=== PATIENT | female | born 1935 | race Caucasian/White ===

== ENCOUNTER 2022-10-18 20:07 | Inpatient (IN) | payer MEDICARE, OTHER ==
[~2022-10-18] VITALS: Ht 160 cm; Wt 93.4 kg
[2022-10-18] MEDS ORDERED: ACETAMINOPHEN ES 500 MG TABLET PO ONE (20:30)
[2022-10-18] MEDS ORDERED: ACETAMINOPHEN ES 500 MG TABLET ONE (20:42)
[2022-10-18 21:33] LABS: CALCIUM 9.8 mg/dL (8.5-10.1); CARBON DIOXIDE 28 mmol/L (21-32); CHLORIDE 101 mmol/L (98-107); CREATININE 1.5 mg/dL (0.6-1.3); GLUCOSE 134 mg/dL (74-106); POTASSIUM 4.5 mmol/L (3.5-5.1); SODIUM SERUM 137 mmol/L (136-145); UREA NITROGEN, BLOOD 21 mg/dL (7-18)
[2022-10-18 21:35] LABS: BASOPHILS % (AUTO) 0.3 % (0.0-2.0); DIFFERENTIAL COMMENT 0; EOSINOPHILS % (AUTO) 0.3 % (0.0-7.0); HEMATOCRIT 40.3 % (31.2-41.9); HEMOGLOBIN 13.2 g/dL (10.9-14.3); LYMPHOCYTES # (AUTO) 0.9 K/uL (0.8-4.8); LYMPHOCYTES % (AUTO) 6.7 % (20.5-51.5); MEAN CORPUSCULAR HGB CONC 33 g/dL (32.3-35.6); MEAN CORPUSCULAR VOLUME 91.8 fL (75.5-95.3); MONOCYTES # (AUTO) 0.4 K/uL (0.1-1.30); MONOCYTES % (AUTO) 2.8 % (0.0-11.0); NEUTROPHILS # (AUTO) 12.3 K/uL (1.8-8.9); NEUTROPHILS % (AUTO) 89.9 % (38.5-71.5); PLATELET COUNT (AUTO) 172 K/uL (179-408); RED BLOOD CELL COUNT(AUTO) 4.39 MIL/uL (3.63-4.92); RED CELL DISTRIBUTION WIDTH 15.2 % (12.3-17.7); WHITE BLOOD COUNT (AUTO) 13.7 K/uL (3.8-11.8)
[2022-10-18 21:42] LABS: LACTIC ACID 2.2 mmol/L (0.4-2.0)
[2022-10-18] MEDS ORDERED: IV NORMAL SALINE 1000 ML BAG IV ONE (21:45)
[2022-10-18] MEDS ORDERED: CEFTRIAXONE 1 G in IV DEXTROSE 5% 50 ML IV ONE (21:45)
[2022-10-18 21:49] LABS: ALANINE AMINOTRANSFERASE 20 U/L (14-59); ALBUMIN 3.4 g/dL (3.4-5.0); ALKALINE PHOSPHATASE 45 U/L (50-136); ASPARTATE AMINOTRANSFERASE 20 U/L (15-37); BILIRUBIN,DIRECT 0.2 mg/dL (0.0-0.2); BILIRUBIN,TOTAL 0.5 mg/dL (0.2-1.0); NT-PRO BNP 1719 pg/mL (0-125); TOTAL PROTEIN, SERUM 7.6 g/dL (6.4-8.2)
[2022-10-18] MEDS ORDERED: CEFTRIAXONE /D5W 50ML IVPB **ER PYXIS IV ONE (21:56)
[2022-10-18 22:03] LABS: *BILIRUBIN,URIN NEGATIVE (NEGATIVE); *CLARITY,URINE SLIGHTLY CLOUDY (CLEAR); *COLOR,URINE YELLOW (YELLOW); *KETONES,URINE NEGATIVE (NEGATIVE); *PROTEIN,URINE 1+ (NEGATIVE); *UROBILINOGEN,URINE 0.2 E.U./dl (NORMAL); LEUKOCYTE ESTERASE ,URINE 1+ (NEGATIVE); NITRITE, URINE POSITIVE (NEGATIVE); UGLUCOSE NEGATIVE (NEGATIVE)
[2022-10-18 22:30] LABS: *BLOOD, URINE TRACE (NEGATIVE)
[2022-10-18] MEDS ORDERED: METO-357 PO (22:39)
[2022-10-18] MEDS ORDERED: ATOR20TA PO (22:39)
[2022-10-18] MEDS ORDERED: LEVO88TA5 PO (22:39)
[2022-10-18] MEDS ORDERED: DONE10TA44 PO (22:39)
[2022-10-18] MEDS ORDERED: CLOP75TA15 PO (22:39)
[2022-10-18] MEDS ORDERED: ISOS30TA9 PO (22:39)
[2022-10-18] MEDS ORDERED: ONDANSETRON 4 MG/2 ML VIAL IV PRN (23:00)
[2022-10-18] MEDS ORDERED: ACETAMINOPHEN 325 MG TABLET PO PRN (23:00)
[2022-10-18] MEDS ORDERED: ENOXAPARIN SODIUM 30 MG/0.3 ML DISP.SYRIN SQ SCH (23:00)
[2022-10-18 23:33] LABS: BACTERIA,URINE MODERATE /HPF (NONE SEEN); SQUAMOUS EPITHELIAL CELL,UR FEW /HPF (NONE SEEN)
[2022-10-19] MEDS ORDERED: ENOXAPARIN SODIUM 80 MG/0.8 ML DISP.SYRIN SQ ONE ×2 (00:55→01:00)
[2022-10-19 01:20] VITALS: BP 131/43; TEMP 98.6; O2SAT 95
[2022-10-19] MEDS ORDERED: CEFTRIAXONE /D5W 50ML IVPB **ER PYXIS IV ONE (03:54)
[2022-10-19 04:00] VITALS: BP 135/45; TEMP 99; O2SAT 96
[2022-10-19] MEDS: IV NS 1000 ML 1,000 ML IV PRN (04:06)
[2022-10-19 07:06] LABS: BASOPHILS % (AUTO) 0.4 % (0.0-2.0); EOSINOPHILS % (AUTO) 0.4 % (0.0-7.0); HEMATOCRIT 36.6 % (31.2-41.9); LYMPHOCYTES # (AUTO) 1.8 K/uL (0.8-4.8); LYMPHOCYTES % (AUTO) 15.7 % (20.5-51.5); MEAN CORPUSCULAR HEMOGLOBIN 30.4 uug (24.7-32.8); MEAN CORPUSCULAR HGB CONC 33 g/dL (32.3-35.6); MEAN CORPUSCULAR VOLUME 92.4 fL (75.5-95.3); MONOCYTES # (AUTO) 0.4 K/uL (0.1-1.30); MONOCYTES % (AUTO) 3.9 % (0.0-11.0); NEUTROPHILS # (AUTO) 8.9 K/uL (1.8-8.9); NEUTROPHILS % (AUTO) 79.6 % (38.5-71.5); PLATELET COUNT (AUTO) 128 K/uL (179-408); RED BLOOD CELL COUNT(AUTO) 3.96 MIL/uL (3.63-4.92); RED CELL DISTRIBUTION WIDTH 15.3 % (12.3-17.7); WHITE BLOOD COUNT (AUTO) 11.2 K/uL (3.8-11.8)
[2022-10-19 07:21] LABS: DIFFERENTIAL COMMENT 1
[2022-10-19 07:27] LABS: CALCIUM 8.4 mg/dL (8.5-10.1); CREATININE 1.3 mg/dL (0.6-1.3); MAGNESIUM 1.8 mg/dL (1.8-2.4); PHOSPHOROUS 3.1 mg/dL (2.5-4.9); POTASSIUM 3.8 mmol/L (3.5-5.1)
[2022-10-19 08:00] VITALS: BP 160/52; TEMP 98.5; O2SAT 96
[2022-10-19] MEDS: ENOXAPARIN SODIUM 100 MG/ML DISP.SYRIN SQ SCH ×2 (11:19→21:01)
[2022-10-19 12:00] VITALS: BP 142/49; TEMP 98; O2SAT 97
[2022-10-19] MEDS ORDERED: ISOS30TA86 PO (14:43)
[2022-10-19] MEDS ORDERED: CALC-883 PO (14:43)
[2022-10-19] MEDS ORDERED: ESCI-9 PO (14:43)
[2022-10-19] MEDS ORDERED: ASPI81TA31 PO (14:43)
[2022-10-19 16:00] VITALS: BP 149/47; TEMP 97.8; O2SAT 96
[2022-10-19 20:00] VITALS: BP 130/42; TEMP 98.6; O2SAT 96
[2022-10-19] MEDS ORDERED: CEFTRIAXONE 1 G in IV DEXTROSE 5% 50 ML IV SCH (22:00)
[2022-10-20 00:51] VITALS: BP 145/52; TEMP 98.5; O2SAT 96
[2022-10-20 05:10] VITALS: BP 156/49; TEMP 97.9; O2SAT 95
[2022-10-20] MEDS: IV NS 1000 ML 1,000 ML IV PRN (07:38)
[2022-10-20 08:00] VITALS: BP 164/65; TEMP 98.2; O2SAT 95
[2022-10-20 08:07] LABS: CALCIUM 8.7 mg/dL (8.5-10.1); CREATININE 1.1 mg/dL (0.6-1.3); MAGNESIUM 2.1 mg/dL (1.8-2.4); PHOSPHOROUS 2.8 mg/dL (2.5-4.9); POTASSIUM 3.6 mmol/L (3.5-5.1)
[2022-10-20 08:08] LABS: BASOPHILS % (AUTO) 0.5 % (0.0-2.0); EOSINOPHILS # (AUTO) 0.1 K/uL (0.0-0.7); HEMATOCRIT 35.5 % (31.2-41.9); HEMOGLOBIN 11.6 g/dL (10.9-14.3); LYMPHOCYTES # (AUTO) 1.9 K/uL (0.8-4.8); LYMPHOCYTES % (AUTO) 26.7 % (20.5-51.5); MEAN CORPUSCULAR HEMOGLOBIN 30.2 uug (24.7-32.8); MEAN CORPUSCULAR HGB CONC 33 g/dL (32.3-35.6); MEAN CORPUSCULAR VOLUME 92.5 fL (75.5-95.3); MONOCYTES # (AUTO) 0.5 K/uL (0.1-1.30); MONOCYTES % (AUTO) 7.7 % (0.0-11.0); NEUTROPHILS # (AUTO) 4.5 K/uL (1.8-8.9); NEUTROPHILS % (AUTO) 63.1 % (38.5-71.5); PLATELET COUNT (AUTO) 130 K/uL (179-408); RED BLOOD CELL COUNT(AUTO) 3.84 MIL/uL (3.63-4.92); RED CELL DISTRIBUTION WIDTH 15.8 % (12.3-17.7); WHITE BLOOD COUNT (AUTO) 7.2 K/uL (3.8-11.8)
[2022-10-20 08:14] LABS: DIFFERENTIAL COMMENT 1
[2022-10-20] MEDS ORDERED: CALCIUM CARB/VITAMIN D 500MG-200UNITS TABLET PO SCH (09:00)
[2022-10-20] MEDS: ENOXAPARIN SODIUM 100 MG/ML DISP.SYRIN SQ SCH (09:58)
[2022-10-20] MEDS ORDERED: ISOSORBIDE DINITRATE 20 MG TABLET PO SCH (10:15)
[2022-10-20] MEDS ORDERED: CEPH500C2 PO (10:15)
[2022-10-20] MEDS ORDERED: ENOX100D SQ (10:58)
[2022-10-20] MEDS ORDERED: REMEDY ESSENTIAL ZINC PASTE 113 GM TOP PRN (11:15)
[2022-10-20 12:00] VITALS: BP 119/48; TEMP 98.1; O2SAT 98
[2022-10-20] MEDS ORDERED: ASPIRIN 81 MG TAB.CHEW PO SCH (12:00)
[2022-10-20] MEDS ORDERED: ESCITALOPRAM OXALATE 10 MG TABLET PO SCH (12:00)
[2022-10-20] MEDS ORDERED: ISOSORBIDE MONONITRATE 30 MG TAB.SR.24H PO SCH (12:00)
[2022-10-20] MEDS ORDERED: METOPROLOL SUCCINATE XL 50 MG TAB.SR.24H PO SCH (12:00)
[2022-10-20] MEDS ORDERED: CLOPIDOGREL 75 MG TABLET PO SCH (12:00)
[2022-10-20] MEDS ORDERED: HYDROCORTISONE 1% CREAM 30 GM TUBE TP PRN (12:45)
[2022-10-20 12:46] VITALS: BP 119/48
[2022-10-20] MEDS ORDERED: DONEPEZIL 10 MG TABLET PO SCH (13:00)
[2022-10-20] MEDS ORDERED: ENOX40DI SQ (20:23)
[2022-10-20] MEDS ORDERED: REMEDY ESSENTIAL ZINC PASTE 113 GM TOP SCH (21:00)
[2022-10-20] MEDS ORDERED: HYDROCORTISONE 1% CREAM 30 GM TUBE TP ONE (21:00)
[2022-10-20] MEDS ORDERED: ATORVASTATIN 20 MG TABLET PO SCH (21:00)
[2022-10-21] MEDS ORDERED: LEVOTHYROXINE SODIUM 88 MCG TABLET PO SCH (07:00)
== END 2022-10-20 17:10 | disposition home or self-care (01) | DRG 871 ==
LOC: ER 20:10 → TELE3 22:50
PROVIDERS: ADMIT Nurse Practitioner Acute Care; ATTEND Nurse Practitioner Acute Care
DX: A41.50 Gram-negative sepsis, unspecified (principal); G93.41 Metabolic encephalopathy; N17.0 Acute kidney failure with tubular necrosis; N39.0 Urinary tract infection, site not specified; I82.621 Acute embolism and thrombosis of deep veins of right upper extremity; L03.113 Cellulitis of right upper limb; D68.59 Other primary thrombophilia; R65.20 Severe sepsis without septic shock; E66.01 Morbid (severe) obesity due to excess calories; Z68.36 Body mass index [BMI] 36.0-36.9, adult; Z85.841 Personal history of malignant neoplasm of brain; Z86.73 Personal history of transient ischemic attack (TIA), and cerebral infarction without residual deficits; Z79.02 Long term (current) use of antithrombotics/antiplatelets; Z79.899 Other long term (current) drug therapy; Z85.3 Personal history of malignant neoplasm of breast; Z90.11 Acquired absence of right breast and nipple; Z74.01 Bed confinement status; Z87.440 Personal history of urinary (tract) infections; F03.90 Unspecified dementia, unspecified severity, without behavioral disturbance, psychotic disturbance, mood disturbance, and anxiety; E03.9 Hypothyroidism, unspecified
CPT/HCPCS: 36415; 70450; 71045; 83605; 83735; 84100; 84484; 85025; 85730; 87040; 93005; A6213; A9150; G0378; J0696; J1650; J7040

== ENCOUNTER 2022-11-09 10:43 | Emergency (ER) | payer MEDICARE, OTHER ==
[~2022-11-09] VITALS: Ht 170.2 cm; Wt 78.0 kg
[~2022-11-09 10:43] MED LIST: ASPI81TA31 PO; ATOR20TA PO; CALC-883 PO; CEPH500C2 PO; CLOP75TA15 PO; DONE10TA44 PO; ENOX40DI SQ; ESCI-9 PO; ISOS30TA86 PO; ISOS30TA9 PO; LEVO88TA5 PO; METO-357 PO
[2022-11-09] MEDS ORDERED: METO-357 PO (11:33)
[2022-11-09] MEDS ORDERED: DONE10TA44 PO (11:33)
[2022-11-09] MEDS ORDERED: [UNRECOGNIZED DRUG - OTHER] PO (11:33)
[2022-11-09] MEDS ORDERED: LEVO88TA5 PO (11:33)
[2022-11-09] MEDS ORDERED: MULT-594 PO (11:33)
[2022-11-09] MEDS ORDERED: VITAMIN D3 PO (11:33)
[2022-11-09] MEDS ORDERED: MAGN200T4 PO (11:33)
[2022-11-09 12:50] LABS: EOSINOPHILS # (AUTO) 0.3 K/uL (0.0-0.7); LYMPHOCYTES # (AUTO) 1.5 K/uL (0.8-4.8); MEAN CORPUSCULAR HGB CONC 33 g/dL (32.3-35.6); MONOCYTES # (AUTO) 0.6 K/uL (0.1-1.30)
[2022-11-09 13:16] LABS: CALCIUM 9.8 mg/dL (8.5-10.1); CARBON DIOXIDE 32 mmol/L (21-32); CHLORIDE 102 mmol/L (98-107); CREATININE 1.4 mg/dL (0.6-1.3); GLUCOSE 99 mg/dL (74-106); POTASSIUM 3.8 mmol/L (3.5-5.1); SODIUM SERUM 134 mmol/L (136-145); UREA NITROGEN, BLOOD 23 mg/dL (7-18)
[2022-11-09 13:20] LABS: BASOPHILS # (AUTO) 0.1 K/UL (0.0-0.2); BASOPHILS % (AUTO) 0.9 % (0.0-2.0); EOSINOPHILS % (AUTO) 4.4 % (0.0-7.0); HEMATOCRIT 39.1 % (31.2-41.9); HEMOGLOBIN 12.9 g/dL (10.9-14.3); LYMPHOCYTES % (AUTO) 23.8 % (20.5-51.5); MEAN CORPUSCULAR HEMOGLOBIN 30.5 uug (24.7-32.8); MEAN CORPUSCULAR VOLUME 92.3 fL (75.5-95.3); MONOCYTES % (AUTO) 9.3 % (0.0-11.0); NEUTROPHILS % (AUTO) 61.6 % (38.5-71.5); PLATELET COUNT (AUTO) 202 K/uL (179-408); RED BLOOD CELL COUNT(AUTO) 4.23 MIL/uL (3.63-4.92); RED CELL DISTRIBUTION WIDTH 15.8 % (12.3-17.7); WHITE BLOOD COUNT (AUTO) 6.5 K/uL (3.8-11.8)
[2022-11-09 13:37] LABS: DIFFERENTIAL COMMENT 0
[2022-11-09 14:33] VITALS: BP 121/61; TEMP 98.2; O2SAT 96
== END 2022-11-09 14:35 | disposition home or self-care (01) ==
LOC: ER 10:43
DX: I89.0 Lymphedema, not elsewhere classified (principal); Z86.73 Personal history of transient ischemic attack (TIA), and cerebral infarction without residual deficits; Z79.01 Long term (current) use of anticoagulants; Z79.82 Long term (current) use of aspirin; Z79.899 Other long term (current) drug therapy
CPT/HCPCS: 36415; 84484; 85025; 85610; 85730; A4663